=== PATIENT | male | born 1945 | race Caucasian/White ===

== ENCOUNTER → 2017-02-19 | Outpatient (CLI) | payer MEDICARE ==
[~2017-02-19] MED LIST: METFORMIN 500M500 MG PO; TRAMADOL50 M1 PO
[2017-02-19 18:59] LABS: LYMPH # 2.7 K/mm3 (0.7-4.5); LYMPH % 27.8 % (10-50)
[2017-02-19 19:34] LABS: BUN 20 mg/dL (7-18)
[2017-02-19 19:40] LABS: GFR (ESTIMATED) 59 ML/MIN (>60)
[2017-02-21 12:36] LABS: Creatinine, Urine 95.5 mg/dL (Not Estab.); Microalbumin, Urine 15.7 ug/mL (Not Estab.)
== END ==
LOC: LAB 18:36
PROVIDERS: Emergency Medicine
DX: E11.9 Type 2 diabetes mellitus without complications (principal)